=== PATIENT | male | born 1995 | race Two or more races ===

== ENCOUNTER 2020-08-22 20:47 | Emergency (ER) | payer BC ==
[~2020-08-22] VITALS: Ht 152.4 cm; Wt 54.3 kg
[2020-08-22] MEDS ORDERED: SODIUM CHLORIDE FLUSH 10ML SYR IVF ONE (21:30)
[2020-08-22] MEDS ORDERED: SODIUM CHLORIDE 0.9% 1,000ML IVBOLUS ONE (21:30)
[2020-08-22 22:07] LABS: BASOPHILS % (AUTO) 0 % (0-1); EOSINOPHILS % (AUTO) 4 % (1-7); LYMPHOCYTES % (AUTO) 3 % (22-44); MEAN CORPUSCULAR HEMOGLOBIN 29.3 pg (27.5-34.5); MEAN CORPUSCULAR HGB CONC 33.3 g/dL (33.2-36.2); MEAN PLATELET VOLUME 9.1 fL (7.4-10.4); MONOCYTES % (AUTO) 5 % (2-9); NEUTROPHILS % (AUTO) 88 % (42-75); PLATELET COUNT 197 x10^3/uL (130-400); RED BLOOD COUNT 5.54 x10^6/uL (4.38-5.82); RED CELL DISTRIBUTION WIDTH 13.3 % (9.4-14.8)
[2020-08-22 22:15] LABS: ALANINE AMINOTRANSFERASE 74 U/L (12-78); ALBUMIN 4.2 g/dL (3.4-5.0); ANION GAP 5 mmol/L (5-15); CALCIUM 9.3 mg/dL (8.5-10.1); CHLORIDE 110 mmol/L (98-107); CREATININE 0.73 mg/dL (0.7-1.3)
[2020-08-22 22:17] LABS: ALKALINE PHOSPHATASE 111 U/L (45-117); BILIRUBIN,TOTAL 0.8 mg/dL (0.2-1.0); TOTAL PROTEIN 8.4 g/dL (6.4-8.2)
[2020-08-22 22:31] LABS: MD SCAN
--- NOTE | 2020-08-23 00:10 | NUR ---
computer lab aide: pt from lobby to room 17
[2020-08-23] MEDS ORDERED: ONDANSETRON 2MG/ML, 2ML IVPush ONE (01:00)
[2020-08-23] MEDS ORDERED: FAMOTIDINE 20 MG/2 ML IVPush ONE (01:00)
[2020-08-23] MEDS ORDERED: FAMOTIDINE 20 MG/2 ML ONE (01:08)
[2020-08-23] MEDS ORDERED: ONDANSETRON 2MG/ML, 2ML ONE (01:08)
--- NOTE | 2020-08-23 01:35 | NUR ---
NAUSEA/PAIN IMPROVED TO 1/10 PROVIDED WITH PO FLUIDS
--- NOTE | 2020-08-23 01:51 | NUR ---
1L NS COMPLETE. PO CHALLENGE SUCCESSFUL
--- NOTE | 2020-08-23 02:42 | NUR ---
as patient remains with lower b/p- erp asked for 2nd liter-to admin then d/c
[2020-08-23] MEDS ORDERED: SODIUM CHLORIDE 0.9% 1,000ML IVBOLUS ONE (03:00)
[2020-08-23 03:25] VITALS: BP 139/80
== END 2020-08-23 03:27 | disposition home or self-care (01) ==
LOC: ED 21:38
DX: K52.9 Noninfective gastroenteritis and colitis, unspecified (principal); E86.0 Dehydration; R11.2 Nausea with vomiting, unspecified; R10.9 Unspecified abdominal pain; J45.909 Unspecified asthma, uncomplicated
CPT/HCPCS: 36415; 80053; 83690; 85025; 96361; 96374; 96375; 99285; J2405; J7030